=== PATIENT | male | born 1940 | race Caucasian/White ===

== ENCOUNTER 2019-07-29 10:47 | Emergency (ER) | payer OTHER ==
[~2019-07-29] VITALS: Ht 188 cm; Wt 90.7 kg
--- NOTE | 2019-07-29 10:54 | NUR ---
Placed in room 8. Placed on classroom monitor, blood pressure machine and pulse oximeter. To gown for exam. Side rails up. Report given to Savana GREGG.
--- NOTE | 2019-07-29 10:56 | NUR ---
Note tamra in ED - 07/29/19 at 1057 by GIA Placed in room 8. Placed on deputy chief sheriff, blood pressure machine and pulse oximeter. To gown for exam. Side rails up. Report given to Savana GREGG.
[2019-07-29 10:57] VITALS: BP_SYST 108
--- NOTE | 2019-07-29 11:11 | NUR ---
blood draw done.
--- NOTE | 2019-07-29 11:15 | NUR ---
Dr Mary at bedside examining patient
[2019-07-29 11:25] LABS: BASOPHILS % (AUTO) 0.8 % (0.0-2.0); EOSINOPHILS % (AUTO) 0.7 % (0.0-4.0); HEMATOCRIT 35.8 % (36-54); HEMOGLOBIN 12.3 g/dL (14.0-18.0); LYMPHOCYTES # (AUTO) 1.5 K/uL (1.0-5.5); LYMPHOCYTES % (AUTO) 27.7 % (20.5-51.5); MEAN CORPUSCULAR HEMOGLOBIN 33 pg (27-31); MEAN CORPUSCULAR HGB CONC 34 % (32-36); MEAN CORPUSCULAR VOLUME 95 fL (79.0-98.0); MONOCYTES # (AUTO) 0.4 K/uL (0.0-1.0); MONOCYTES % (AUTO) 7.6 % (1.7-9.3); NEUTROPHILS # (AUTO) 3.4 K/uL (1.8-7.7); NEUTROPHILS % (AUTO) 63.2 % (40.0-70.0); PLATELET COUNT (AUTO) 164 K/uL (130-430); RED BLOOD CELL COUNT(AUTO) 3.76 MIL/uL (4.2-6.2); RED CELL DISTRIBUTION WIDTH 12.8 % (9.0-15.0); WHITE BLOOD COUNT (AUTO) 5.4 K/uL (4.8-10.8)
--- NOTE | 2019-07-29 11:30 | NUR ---
patient was [facility] ambulance from [facility]. cc of aloc, pt alert, awake, oriented, hx of parkinson disease. at bedside giving information. stated this is baseline of patient. vital sign stable, afebrile. no s/s of distress. on oxygen saturation 99%. godwin catheter draining well via gravity yellow color out.
[2019-07-29 11:34] LABS: INR 1.2 (0.80-1.20); PROTHROMBIN TIME 12.1 SECS (9.5-12.5)
[2019-07-29 12:02] LABS: ALANINE AMINOTRANSFERASE 15 U/L (12-78); ALBUMIN 2.5 g/dL (3.4-4.8); ANION GAP 6 (5-15); ASPARTATE AMINOTRANSFERASE 39 U/L (10-37); CALCIUM 8.2 mg/dL (8.4-11.0); CHLORIDE 106 mmol/L (98-107); CREATININE 1.08 mg/dL (0.55-1.30); GLUCOSE 100 mg/dL (70-99); POTASSIUM 4.4 mmol/L (3.5-5.1); SODIUM SERUM 138 mmol/L (136-145); TOTAL BILIRUBIN 0.7 mg/dL (0.0-1.0); UREA NITROGEN, BLOOD 15 mg/dL (8-21)
[2019-07-29 12:03] LABS: ALCOHOL, BLOOD < 3 mg/dL (<10)
--- NOTE | 2019-07-29 12:04 | NUR ---
patient wants to take out godwin catheter and replace new one.but patient wants to take out permanently. tried to get more information why patient on f/c, unable to give straight answer. only saying UTI. urinalysis collected and sent to labs.
[2019-07-29 12:17] LABS: BARBITURATE, URINE NEGATIVE (NEG <=200); BENZODIAZEPINE, URINE NEGATIVE (NEG <=150); CANNABINOID, URINE NEGATIVE (NEG <=50); COCAINE, URINE NEGATIVE (NEG <=150); METHAMPHETAMINES SCREEN,URINE NEGATIVE (NEG <=500); OPIATE, URINE NEGATIVE (NEG <=100); PHENCYCLIDINE SCREEN,URINE NEGATIVE (NEG <=25); UR TRICYCLIC ANTIDEPRESSANTS NEGATIVE (NEG <=300); URINE AMPHETAMINE NEGATIVE (NEG <=500); URINE METHADONE NEGATIVE (NEG <=200); URINE OXYCODONE SCREEN NEGATIVE (NEG <=100); URINE PROPOXYPHENE SCREEN NEGATIVE (NEG <=300)
[2019-07-29 13:22] LABS: BILIRUBIN,URINE NEGATIVE (NEGATIVE); BLOOD, URINE NEGATIVE (NEGATIVE); CLARITY/URINE CLEAR (CLEAR); COLOR,URINE YELLOW (YELLOW); GLUCOSE,URINE NEGATIVE (NEGATIVE); KETONES,URINE NEGATIVE (NEGATIVE); LEUKOCYTE ESTERASE ,URINE NEGATIVE (NEGATIVE); NITRITE, URINE NEGATIVE (NEGATIVE); PH,URINE 5.5 (5.0-8.0); PROTEIN URINE NEGATIVE (NEGATIVE); UROBILINOGEN,URINE 0.2 (0.2-1.0)
--- NOTE | 2019-07-29 13:50 | NUR ---
patient and spouse wants to discontinue godwin catheter. MD Mary ordered to d/c. no deflated ballon 10 cc . patient tolerated well. no hematuria noted.
--- NOTE | 2019-07-29 14:12 | NUR ---
[facility], informed patient is going back. updated patient current status. s/w Tiffanie GREGG.
[2019-07-29 14:30] VITALS: BP_SYST 126
--- NOTE | 2019-07-29 14:30 | NUR ---
Patient given written and verbal discharge instructions and verbalizes understanding. ER MD discussed with patient the results and treatment provided. Patient in stable condition. IV catheter removed intact and dressing applied, no active bleeding. Patient educated on pain management and to follow up with PMD. Pain Scale 0. Opportunity for questions provided and answered. Medication side effect fact sheet provided.discharge copies given to [facility].
== END 2019-07-29 14:30 | disposition home or self-care (01) ==
LOC: SED 10:47
DX: R45.1 Restlessness and agitation (principal); K21.9 Gastro-esophageal reflux disease without esophagitis; F17.200 Nicotine dependence, unspecified, uncomplicated
CPT/HCPCS: 36415; 71045; 80053; 80307; 81003; 82140; 82550; 83605; 83880; 84484; 85025; 85610; 85730; 93005; 99284; G0482